=== PATIENT | male | born 1980 | race Hispanic/Latino ===

== ENCOUNTER 2024-04-02 11:34 | Inpatient (IN) | payer OTHER ==
[2024-04-02 11:56] LABS: #Basophils 0.03 10x3/uL (0.0-0.2); #Eosinphils Less than 0.03 10x3/uL (0.0-0.7); %Basophils 0.2 % (0.0-1.0); %Lymphocytes 7.7 % (21.0-51.0); %Monocytes 1.5 % (0.0-10.0); %Neutrophils 90.1 % (42.0-75.0); Hematocrit 45.6 % (42.0-52.0); Mean Corpuscular HGB CONC 35.1 g/dL (32.0-36.0); Mean Corpuscular Hemoglobin 31.3 pg (27.0-31.0); Mean Corpuscular Volume 89.1 fL (78.0-98.0); Mean Platelet Volume 9.6 fL (7.4-10.4); Platelet Count 257 10x3/uL (130-400); Red Blood Cell (RBC) Count 5.12 mill/uL (4.70-6.10)
[2024-04-02 12:10] LABS: ALT (SGPT) 37 U/L (8-55); AST (SGOT) 36 U/L (5-34); Albumin 4.3 g/dL (3.5-5.0); Alkaline Phosphatase 127 U/L (40-110); Anion Gap 17 mmol/L (10-20); BUN (Urea Nitrogen) 10 mg/dL (8.9-20.6); Bilirubin, Total 1.2 mg/dL (0.2-1.2); Calc. Creatinine Clearance 0 mL/min (70-130); Calcium 9.4 mg/dL (7.8-10.44); Carbon Dioxide 20 mmol/L (22-29); Chloride 107 mmol/L (98-107); Estimated GFR 108; Globulin 3.9 g/dL (2.4-3.5); Glucose 129 mg/dL (70-105); Lipase 21 U/L (8-78); Potassium 3.9 mmol/L (3.5-5.1); Protein, Total 8.2 g/dL (6.0-8.3); Sodium 140 mmol/L (136-145)
[2024-04-02] MEDS ORDERED: Ondansetron ODT 4 MG TAB ONE (13:30)
[2024-04-02] MEDS ORDERED: Dicyclomine 20 MG TAB ONE (13:37)
[2024-04-02] MEDS ORDERED: Ketorolac Tromethamine 30 MG (1 mL) VIAL ONE (13:37)
[2024-04-02] MEDS ORDERED: Piperacillin/Tazobactam 4.5 GM VIAL ONE (14:24)
[2024-04-02] MEDS ORDERED: Sodium Chloride 0.9% 100 ML ONE (14:24)
[2024-04-02 15:16] LABS: Bacteria/HPF None Seen HPF (None Seen); Bilirubin Negative (Negative); Blood, Urine Negative (Negative); CAUTI Indications for Culture Pelvic or flank pain; Clarity Clear (Clear); Glucose, Urine (Dipstick) Normal (Negative); Ketone, Urine 40 mg/dL (Negative); Leukocyte Negative Leu/uL (Negative); Nitrite Negative (Negative); Protein, Urine (Dipstick) 20 mg/dL (Neg-Trace); RBC/HPF 0-3 HPF (0-3); Squamous Epithelial None Seen HPF (0-3); Urobilinogen Normal mg/dL (Less than 2); WBC/HPF 0-3 HPF (0-3)
[2024-04-02 15:27] LABS: Urine Culture Reflex No No
[2024-04-02] MEDS ORDERED: Ondansetron PF 4 MG/2 ML Vial IVP PRN (16:59)
[2024-04-02] MEDS ORDERED: Morphine 2 MG/ML VIAL SLOW IVP PRN (16:59)
[2024-04-02 17:27] LABS: Lactic Acid 1.9 mmol/L (0.5-2.2)
[2024-04-02] MEDS ORDERED: Piperacillin/Tazobactam 3.375 GM in Sodium Chloride 0.9% 100 ML IVPB SCH (18:00)
[2024-04-02] MEDS: Morphine 4 MG/ML VIAL SLOW IVP PRN (18:24)
[2024-04-02] MEDS: Piperacillin/Tazobactam 3.375 GM in Sodium Chloride 0.9% 100 ML IVPB SCH (18:24)
[2024-04-02 20:06] VITALS: BMI 24.1
[2024-04-02] MEDS: TETANUS, DIPHTHERIA TOX,ADULT (TDVAX) 0.5 ML VIAL IM ONE (20:36)
[2024-04-02] MEDS ORDERED: Bupivacaine 0.25% HCL 30 ML VIAL ONE (23:38)
[2024-04-02] MEDS ORDERED: EPINEPHrine 1 MG/ML VIAL ONE (23:38)
[2024-04-03] MEDS ORDERED: PROPOFOL 40 ML ONE (00:04)
[2024-04-03] MEDS ORDERED: fentaNYL PF 100 MCG/2 ML SYRINGE ONE ×2 (00:11→00:41)
[2024-04-03] MEDS ORDERED: Lidocaine 1% PF 5 ML VIAL ONE (00:25)
[2024-04-03] MEDS ORDERED: Rocuronium Bromide 10 MG/ML (10ML VIAL) ONE (00:25)
[2024-04-03] MEDS ORDERED: Morphine Sulfate 2 MG/ML SYRINGE SLOW IVP PRN (00:54)
[2024-04-03] MEDS ORDERED: Ondansetron HCl/PF 4 MG/2 ML Vial IVP PRN (00:54)
[2024-04-03] MEDS ORDERED: PACU-Morphine 4MG/ML VIAL SLOW IVP PRN (00:54)
[2024-04-03] MEDS ORDERED: Promethazine HCl 25 MG/ML VIAL IM PRN (00:54)
[2024-04-03] MEDS ORDERED: SUGAMMADEX SODIUM 200 MG/2 ML VIAL ONE (01:07)
[2024-04-03] MEDS ORDERED: Acetaminophen/Codeine 30-300mg Tablet PO PRN (01:50)
[2024-04-03 05:48] LABS: #Basophils Less than 0.03 10x3/uL (0.0-0.2); #Eosinphils Less than 0.03 10x3/uL (0.0-0.7); %Basophils 0.1 % (0.0-1.0); %Monocytes 3.4 % (0.0-10.0); %Neutrophils 93.2 % (42.0-75.0); Hematocrit 38.2 % (42.0-52.0); Hemoglobin 13.1 g/dL (14.0-18.0); Mean Corpuscular HGB CONC 34.3 g/dL (32.0-36.0); Mean Corpuscular Hemoglobin 30.5 pg (27.0-31.0); Mean Corpuscular Volume 88.8 fL (78.0-98.0); Mean Platelet Volume 9.7 fL (7.4-10.4); Platelet Count 203 10x3/uL (130-400); RBC Distribution Width 12.2 % (11.5-14.5)
[2024-04-03 06:01] LABS: Anion Gap 13 mmol/L (10-20); BUN (Urea Nitrogen) 13 mg/dL (8.9-20.6); Calc. Creatinine Clearance 91 mL/min (70-130); Calcium 8.6 mg/dL (7.8-10.44); Carbon Dioxide 21 mmol/L (22-29); Chloride 108 mmol/L (98-107); Estimated GFR 101; Glucose 139 mg/dL (70-105); Potassium 3.7 mmol/L (3.5-5.1); Sodium 138 mmol/L (136-145)
[2024-04-03 07:44] VITALS: BP 108/70; TEMP 98.6
[2024-04-03] MEDS: traMADol HCl 50 MG TAB PO PRN (10:18)
== END 2024-04-03 15:21 | disposition home or self-care (01) | DRG 399 ==
LOC: ERS 11:34 → SURG A 17:13
PROVIDERS: ADMIT Student in an Organized Health Care Education/Training Program; ATTEND Student in an Organized Health Care Education/Training Program
PROC: 0DTJ4ZZ Resection of Appendix, Percutaneous Endoscopic Approach (ICD-10-PCS; principal; 2024-04-03)
PROC: 3E033XZ Introduction of Vasopressor into Peripheral Vein, Percutaneous Approach (ICD-10-PCS; 2024-04-03)
DX: K35.80 Unspecified acute appendicitis (principal); Z90.49 Acquired absence of other specified parts of digestive tract
CPT/HCPCS: 36415; 74176; 80048; 80053; 81001; 83605; 83690; 85025; 86850; 86900; 86901; 87040; 87086; 88304; 96365; 96372; A4314; A4649; C1889; J0171; J0665; J1885; J2270; J2543; J2704; J3490; Q0162